=== PATIENT | female | born 1995 | race African-American/Black ===

== ENCOUNTER 2017-12-16 12:02 | Emergency (ER) | payer MEDICAID ==
[~2017-12-16] VITALS: Ht 160 cm; Wt 59.0 kg
--- NOTE | 2017-12-16 12:40 | NUR ---
Dr Mcintosh at the bedside for MSE.
[2017-12-16] MEDS ORDERED: ONDANSETRON IV *ER 4 MG/2 ML VIAL IV ONE (12:42)
[2017-12-16] MEDS ORDERED: HYDROCODONE/APAP 5-325MG TABLET PO ONE (12:42)
[2017-12-16] MEDS ORDERED: IV NS 1000 ML 1,000 ML IV ONE (12:45)
[2017-12-16 13:01] LABS: *BILIRUBIN,URIN NEGATIVE (NEGATIVE); *BLOOD, URINE NEGATIVE (NEGATIVE); *COLOR,URINE YELLOW (YELLOW); *KETONES,URINE NEGATIVE (NEGATIVE); *PROTEIN,URINE NEGATIVE (NEGATIVE); *UROBILINOGEN,URINE 0.2 E.U./dl (NORMAL); LEUKOCYTE ESTERASE ,URINE NEGATIVE (NEGATIVE); NITRITE, URINE NEGATIVE (NEGATIVE); PH,URINE 7.5 (5.0-8.0); UGLUCOSE NEGATIVE (NEGATIVE)
[2017-12-16 13:03] LABS: *URINE HCG, QUAL NEGATIVE (NEGATIVE)
[2017-12-16 13:04] LABS: BASOPHILS % (AUTO) 0.7 % (0.0-2.0); EOSINOPHILS # (AUTO) 0.1 K/uL (0.0-0.7); HEMATOCRIT 43.3 % (31.2-41.9); HEMOGLOBIN 14.5 g/dL (10.9-14.3); LYMPHOCYTES # (AUTO) 2.3 K/uL (20.0-40.0); LYMPHOCYTES % (AUTO) 37.2 % (20.5-51.5); MEAN CORPUSCULAR HEMOGLOBIN 28.5 uug (24.7-32.8); MEAN CORPUSCULAR HGB CONC 34 g/dL (32.3-35.6); MEAN CORPUSCULAR VOLUME 84.8 fL (75.5-95.3); MONOCYTES # (AUTO) 0.7 K/uL (2.0-10.0); MONOCYTES % (AUTO) 11.7 % (0.0-11.0); NEUTROPHILS % (AUTO) 49.4 % (38.5-71.5); PLATELET COUNT (AUTO) 227 K/uL (179-408); WHITE BLOOD COUNT (AUTO) 6.1 K/uL (3.8-11.8)
[2017-12-16 13:05] LABS: CREATININE 0.9 mg/dL (0.6-1.3); POTASSIUM 3.8 mmol/L (3.5-5.1)
[2017-12-16] MEDS ORDERED: HYDROCODONE/APAP 5-325MG TABLET ONE (13:05)
[2017-12-16] MEDS ORDERED: ONDANSETRON 4 MG/2 ML VIAL ONE (13:06)
[2017-12-16 13:11] LABS: BILIRUBIN,TOTAL 0.3 mg/dL (0.2-1.0); TOTAL PROTEIN, SERUM 8.5 g/dL (6.4-8.2)
[2017-12-16 13:17] LABS: *CLARITY,URINE HAZY (CLEAR)
[2017-12-16 13:18] LABS: BACTERIA,URINE FEW /HPF (NONE SEEN); MUCUS,URINE FEW /LPF (0-FEW); RBC,URINE 0-3 /HPF (0-3); SQUAMOUS EPITHELIAL CELL,UR MODERATE /HPF (NONE SEEN); WBC,URINE 0-3 /HPF (0-3)
--- NOTE | 2017-12-16 15:38 | NUR ---
IV removed. Catheter intact and site benign. Pressure and 4x4 gauze applied to site. No bleeding noted.
[2017-12-16 15:39] VITALS: BP 111/67
--- NOTE | 2017-12-16 15:39 | NUR ---
Patient discharged to home in stable conditon. Written and verbal after care instructions given. Patient verbalizes understanding of instructions.
== END 2017-12-16 15:40 | disposition home or self-care (01) ==
LOC: ER 12:05
DX: R10.32 Left lower quadrant pain (principal); M54.9 Dorsalgia, unspecified
CPT/HCPCS: 36415; 83690; 84703; 85025; A4663; J2405; J7030

== ENCOUNTER 2017-12-25 14:15 | Emergency (ER) | payer MEDICAID ==
[~2017-12-25] VITALS: Ht 160 cm; Wt 56.7 kg
[2017-12-25] MEDS ORDERED: IBUPROFEN 800 MG TABLET PO ONE (14:45)
[2017-12-25] MEDS ORDERED: IBUPROFEN 800 MG TABLET ONE (14:48)
[2017-12-25 15:01] LABS: BASOPHILS % (AUTO) 0.7 % (0.0-2.0); EOSINOPHILS # (AUTO) 0.1 K/uL (0.0-0.7); EOSINOPHILS % (AUTO) 1.5 % (0.0-7.0); HEMATOCRIT 38.6 % (31.2-41.9); HEMOGLOBIN 12.7 g/dL (10.9-14.3); LYMPHOCYTES # (AUTO) 1.5 K/uL (20.0-40.0); LYMPHOCYTES % (AUTO) 33.4 % (20.5-51.5); MEAN CORPUSCULAR HEMOGLOBIN 28.4 uug (24.7-32.8); MEAN CORPUSCULAR HGB CONC 33 g/dL (32.3-35.6); MEAN CORPUSCULAR VOLUME 85.9 fL (75.5-95.3); MONOCYTES # (AUTO) 0.6 K/uL (2.0-10.0); NEUTROPHILS # (AUTO) 2.3 K/uL (1.8-8.9); NEUTROPHILS % (AUTO) 51.4 % (38.5-71.5); PLATELET COUNT (AUTO) 209 K/uL (179-408); RED BLOOD CELL COUNT(AUTO) 4.49 MIL/uL (3.63-4.92); WHITE BLOOD COUNT (AUTO) 4.4 K/uL (3.8-11.8)
[2017-12-25 15:03] LABS: *BILIRUBIN,URIN NEGATIVE (NEGATIVE); *BLOOD, URINE 3+ (NEGATIVE); *KETONES,URINE NEGATIVE (NEGATIVE); *PROTEIN,URINE TRACE (NEGATIVE); LEUKOCYTE ESTERASE ,URINE NEGATIVE (NEGATIVE); NITRITE, URINE NEGATIVE (NEGATIVE); UGLUCOSE NEGATIVE (NEGATIVE)
[2017-12-25 15:05] LABS: CREATININE 0.9 mg/dL (0.6-1.3); POTASSIUM 3.8 mmol/L (3.5-5.1)
[2017-12-25 15:11] LABS: BILIRUBIN,DIRECT 0.1 mg/dL (0.0-0.2); BILIRUBIN,TOTAL 0.3 mg/dL (0.2-1.0); TOTAL PROTEIN, SERUM 7.5 g/dL (6.4-8.2)
[2017-12-25 15:15] LABS: *CLARITY,URINE CLOUDY (CLEAR)
[2017-12-25 15:16] LABS: *COLOR,URINE Brown (YELLOW)
[2017-12-25 15:17] LABS: BACTERIA,URINE FEW /HPF (NONE SEEN); RBC,URINE TNTC /HPF (0-3); SQUAMOUS EPITHELIAL CELL,UR MODERATE /HPF (NONE SEEN); WBC,URINE 0-3 /HPF (0-3)
[2017-12-25] MEDS ORDERED: IV NORMAL SALINE 100 ML ONE (16:17)
[2017-12-25] MEDS ORDERED: SWABABLE VALVE TRANSFER SET EA MC ONE (16:17)
[2017-12-25] MEDS ORDERED: IOHEXOL 300MG/ML 100 ML INFUS..BTL ONE (16:17)
[2017-12-25] MEDS ORDERED: NORMAL SALINE FLUSH 10 ML DISP.SYRIN ONE (16:17)
[2017-12-25] MEDS ORDERED: METOCLOPRAMIDE HCL 10 MG/2 ML VIAL IV ONE (17:00)
[2017-12-25] MEDS ORDERED: METOCLOPRAMIDE HCL 10 MG/2 ML VIAL ONE (17:13)
[2017-12-25] MEDS ORDERED: diphenhydrAMINE 50 MG/1 ML VIAL ONE (17:43)
[2017-12-25] MEDS ORDERED: diphenhydrAMINE 50 MG/1 ML VIAL IV ONE (17:45)
--- NOTE | 2017-12-25 17:53 | NUR ---
IV removed. Catheter intact and site benign. Pressure and 4x4 gauze applied to site. No bleeding noted. Patient discharged to home in stable conditon & brisk steady gait. Written and verbal after care instructions given to patient and pat's mother. Patient and family verbalized understanding of instructions.
== END 2017-12-25 17:56 | disposition home or self-care (01) ==
LOC: ER 14:17
DX: R10.32 Left lower quadrant pain (principal); F12.10 Cannabis abuse, uncomplicated; Z88.8 Allergy status to other drugs, medicaments and biological substances; Z91.041 Radiographic dye allergy status
CPT/HCPCS: 36415; 76856; 83690; 84703; 85025; A4663; J1200; J2765; J3490; Q9967

== ENCOUNTER 2018-10-12 10:47 | Emergency (ER) | payer MEDICAID ==
[~2018-10-12] VITALS: Ht 160 cm; Wt 50.3 kg
[2018-10-12] MEDS ORDERED: LORAZEPAM 2 MG/1 ML VIAL ONE (11:27)
[2018-10-12] MEDS ORDERED: LORAZEPAM 2 MG/1 ML VIAL IM ONE (11:30)
--- NOTE | 2018-10-12 11:42 | NUR ---
PATIENT WA SEEN BY MD. MEDICATION GIVEN ORDERED. INSTRUCTED PATIENT NOT TO DRIVE AND NO ALCOHOL WHILE ON ATIVAN. DC, RX (INCLUDING PRECAUTIONS) AND FOLLOW UP INSTRUCTIONS GIVEN AND EXPLAINED TO PATIENT WHO STATES SHE UNDERSTANDS ALL INSTRUCTIONS.
== END 2018-10-12 11:44 | disposition home or self-care (01) ==
LOC: ER 10:47
DX: F41.9 Anxiety disorder, unspecified (principal); Z88.8 Allergy status to other drugs, medicaments and biological substances
CPT/HCPCS: 96372; 99283; J2060; A4663